=== PATIENT | female | born 1950 | race Caucasian/White ===

== ENCOUNTER 2019-09-11 11:10 | Inpatient (IN) | payer MEDICARE, OTHER ==
[2019-09-11] MEDS ORDERED: ALBUTEROL NEBULIZED 2.5 MG/3 ML INHALATION STA (11:34)
[2019-09-11] MEDS ORDERED: IPRATROPIUM 0.5 MG/2.5 ML NEBU INHALATION STA (11:34)
[2019-09-11] MEDS ORDERED: methylPREDNISolone SOD SUCCI 125 MG/2 ML VIAL IV STA (11:34)
[2019-09-11] MEDS ORDERED: ONDANSETRON 4 MG/2 ML VIAL IVP STA (11:36)
--- NOTE | 2019-09-11 12:38 | XR ---
EXAMINATION TYPE: XR chest 2V DATE OF EXAM: 09/11/2019 COMPARISON: 07/07/2015 HISTORY: 69-year-old female with shortness of breath, difficulty breathing TECHNIQUE: Frontal and lateral views FINDINGS: Heart normal size. Aorta and pulmonary vasculature within normal limits. Mild interstitial prominence and mild hyperinflation. Some strandy atelectasis in the lower lungs. IMPRESSION: Underlying COPD. Some strandy bibasilar atelectasis. No acute process otherwise seen.
--- NOTE | 2019-09-11 12:39 | ED ---
General Adult HPI - General Chief complaint: Shortness of Breath Stated complaint: SOB Time Seen by Provider: 09/11/19 11:15 Source: patient, RN notes reviewed, old records reviewed Mode of arrival: wheelchair Limitations: no limitations - History of Present Illness Initial comments: This is a 69-year-old female who presents emergency department with past medical history significant for COPD. Patient comes in today stating over the last 2 weeks her shortness of breath has gotten worse. Patient also complains of palpitations as well as nausea. Patient denies any recent fever chills patient complains of a slight cough. Patient denies headache patient denies numbness weakness. Patient denies any chest pain. Patient denies any abdominal pain. Patient denies any nausea vomiting diarrhea. Patient denies any focal weakness. Patient denies any headache patient denies any lightheadedness or dizziness. Patient states she takes her albuterol at home but has not been helping. Patient states he got worse today so she decided to come in. Patient denies any increased swelling to legs or calf tenderness. - Related Data Home Medications Medication Instructions Recorded Confirmed Aspirin EC [Ecotrin Low Dose] 81 mg PO HS 09/03/14 07/07/15 Atorvastatin [Lipitor] 10 mg PO HS 09/03/14 07/07/15 Ibuprofen [Advil] 600 mg PO BID PRN 09/03/14 07/07/15 LORazepam [Ativan] 0.5 mg PO BID PRN 09/03/14 07/07/15 Montelukast [Singulair] 10 mg PO HS 09/03/14 07/07/15 Tiotropium [place] [Spiriva] 18 mcg INHALATION RT-DAILY 09/03/14 07/07/15 amLODIPine [Norvasc] 10 mg PO DAILY 09/03/14 07/07/15 Beclomethasone Dipropionate [Qvar 2 puff INHALATION RT-BID 07/07/15 07/07/15 40 mcg/puff] FLUoxetine HCL [PROzac] 20 mg PO DAILY 07/07/15 07/07/15 Lisinopril [Zestril] 20 mg PO DAILY 07/07/15 07/07/15 Venlafaxine HCl [Effexor XR] 75 mg PO DAILY 07/07/15 07/07/15 Previous Rx's Medication Instructions Recorded Ipratropium-Albuterol Nebulize 3 ml INHALATION RT-Q4H PRN 30 Days 09/12/14 [Duoneb 0.5 mg-3 mg/3 ml Soln] ampul.neb Azithromycin [Zithromax] 500 mg PO DAILY #5 tab 07/10/15 Ondansetron [Zofran] 4 mg PO Q8HR PRN #10 tab 07/10/15 predniSONE 0 mg PO DIRECTED #30 tab 07/10/15 Allergies Allergy/AdvReac Type Severity Reaction Status Date / Time codeine Allergy Nausea & Verified 09/11/19 11:17 Vomiting Review of Systems ROS Statement: Those systems with pertinent positive or pertinent negative responses have been documented in the HPI. ROS Other: All systems not noted in ROS Statement are negative. Past Medical History Past Medical History: Asthma, COPD, Hyperlipidemia, Hypertension, Pneumonia Additional Past Medical History / Comment(s): hypercholestremia History of Any Multi-Drug Resistant Organisms: None Reported Past Surgical History: Tonsillectomy Additional Past Surgical History / Comment(s): parathyroid surgery, d/c x 2 Past Anesthesia/Blood Transfusion Reactions: No Reported Reaction Past Psychological History: Anxiety, Depression Smoking Status: Former smoker Past Alcohol Use History: None Reported Past Drug Use History: None Reported - Past Family History Mother Family Medical History: Cancer Additional Family Medical History / Comment(s): breast Sister(s) Family Medical History: Cancer Additional Family Medical History / Comment(s): breast General Exam - General Exam Comments Initial Comments: GENERAL: Patient is well-developed and well-nourished. Patient is nontoxic and well- hydrated and is in mild distress. ENT: Neck is soft and supple. No significant lymphadenopathy is noted. Oropharynx is clear. Moist mucous membranes. Neck has full range of motion without eliciting any pain. EYES: The sclera were anicteric and conjunctiva were pink and moist. Extraocular movements were intact and pupils were equal round and reactive to light. Eyelids were unremarkable. PULMONARY: Diminished breath sounds CARDIOVASCULAR: There is a regular rate and rhythm without any murmurs gallops or rubs. ABDOMEN: Soft and nontender with normal bowel sounds. No palpable organomegaly was noted. There is no palpable pulsatile mass. SKIN: Skin is clear with no lesions or rashes and otherwise unremarkable. NEUROLOGIC: Patient is alert and oriented x3. Cranial nerves II through XII are grossly intact. Motor and sensory are also intact. Normal speech, volume and content. Symmetrical smile. MUSCULOSKELETAL: Normal extremities with adequate strength and full range of motion. LYMPHATICS: No significant lymphadenopathy is noted PSYCHIATRIC: Normal psychiatric evaluation. Limitations: no limitations Course Vital Signs 09/11/19 09/11/19 09/11/19 11:11 11:44 12:07 Temperature 98.1 F Pulse Rate 91 92 96 Respiratory 18 Rate Blood Pressure 130/67 O2 Sat by Pulse 97 Oximetry 09/11/19 12:41 Temperature 98.2 F Pulse Rate 84 Respiratory 18 Rate Blood Pressure 111/58 O2 Sat by Pulse 90 L Oximetry Medical Decision Making - Medical Decision Making EKG shows normal sinus rhythm at 82 bpm CA interval is 142 URS is 82 QT interval 36 QTC is 450. EKG shows no ST segment elevation or depression Chest x-ray shows no acute abnormality. I spoke with Dr. Barney he agreed to admit the patient admitted the patient wrote admitting orders. - Lab Data Result diagrams: 09/11/19 12:15 09/11/19 12:15 Lab Results 09/11/19 09/11/19 09/11/19 Range/Units 12:15 12:15 12:15 WBC 11.5 H (3.8-10.6) k/uL RBC 4.06 (3.80-5.40) m/uL Hgb 12.1 (11.4-16.0) gm/dL Hct 36.8 (34.0-46.0) % MCV 90.7 (80.0-100.0) fL MCH 29.7 (25.0-35.0) pg MCHC 32.7 (31.0-37.0) g/dL RDW 12.7 (11.5-15.5) % Plt Count 302 (150-450) k/uL Neutrophils % 88 % Lymphocytes % 6 % Monocytes % 4 % Eosinophils % 1 % Basophils % 0 % Neutrophils # 10.1 H (1.3-7.7) k/uL Lymphocytes # 0.7 L (1.0-4.8) k/uL Monocytes # 0.5 (0-1.0) k/uL Eosinophils # 0.1 (0-0.7) k/uL Basophils # 0.0 (0-0.2) k/uL PT 9.3 (9.0-12.0) sec INR 0.9 (<1.2) APTT 24.4 (22.0-30.0) sec D-Dimer 0.48 (<0.60) mg/L FEU Sodium 136 L (137-145) mmol/L Potassium 4.3 (3.5-5.1) mmol/L Chloride 100 (98-107) mmol/L Carbon Dioxide 30 (22-30) mmol/L Anion Gap 6 mmol/L BUN 24 H (7-17) mg/dL Creatinine 1.29 H (0.52-1.04) mg/dL Est GFR (CKD-EPI)AfAm 49 (>60 ml/min/1.73 sqM) Est GFR (CKD-EPI)NonAf 42 (>60 ml/min/1.73 sqM) Glucose 113 H (74-99) mg/dL Plasma Lactic Acid Ricky (0.7-2.0) mmol/L Calcium 9.1 (8.4-10.2) mg/dL Magnesium 2.3 (1.6-2.3) mg/dL Total Bilirubin 0.4 (0.2-1.3) mg/dL AST 23 (14-36) U/L ALT 18 (4-34) U/L Alkaline Phosphatase 112 (38-126) U/L Troponin I (0.000-0.034) ng/mL NT-Pro-B Natriuret Pep pg/mL Total Protein 6.4 (6.3-8.2) g/dL Albumin 4.0 (3.5-5.0) g/dL 09/11/19 09/11/19 09/11/19 Range/Units 12:15 12:15 12:15 WBC (3.8-10.6) k/uL RBC (3.80-5.40) m/uL Hgb (11.4-16.0) gm/dL Hct (34.0-46.0) % MCV (80.0-100.0) fL MCH (25.0-35.0) pg MCHC (31.0-37.0) g/dL RDW (11.5-15.5) % Plt Count (150-450) k/uL Neutrophils % % Lymphocytes % % Monocytes % % Eosinophils % % Basophils % % Neutrophils # (1.3-7.7) k/uL Lymphocytes # (1.0-4.8) k/uL Monocytes # (0-1.0) k/uL Eosinophils # (0-0.7) k/uL Basophils # (0-0.2) k/uL PT (9.0-12.0) sec INR (<1.2) APTT (22.0-30.0) sec D-Dimer (<0.60) mg/L FEU Sodium (137-145) mmol/L Potassium (3.5-5.1) mmol/L Chloride (98-107) mmol/L Carbon Dioxide (22-30) mmol/L Anion Gap mmol/L BUN (7-17) mg/dL Creatinine (0.52-1.04) mg/dL Est GFR (CKD-EPI)AfAm (>60 ml/min/1.73 sqM) Est GFR (CKD-EPI)NonAf (>60 ml/min/1.73 sqM) Glucose (74-99) mg/dL Plasma Lactic Acid Ricky 1.3 (0.7-2.0) mmol/L Calcium (8.4-10.2) mg/dL Magnesium (1.6-2.3) mg/dL Total Bilirubin (0.2-1.3) mg/dL AST (14-36) U/L ALT (4-34) U/L Alkaline Phosphatase (38-126) U/L Troponin I <0.012 (0.000-0.034) ng/mL NT-Pro-B Natriuret Pep 125 pg/mL Total Protein (6.3-8.2) g/dL Albumin (3.5-5.0) g/dL Disposition Clinical Impression: COPD with acute exacerbation Disposition: ADMITTED IP TO THIS HOSP Referrals: Nicole Campbell DO [Primary Care Provider] - 1-2 days Time of Disposition: 13:39
[2019-09-11 12:41] LABS: Calcium 9.1 mg/dL (8.4-10.2); Magnesium 2.3 mg/dL (1.6-2.3); Potassium 4.3 mmol/L (3.5-5.1); Total Bilirubin 0.4 mg/dL (0.2-1.3); Total Protein 6.4 g/dL (6.3-8.2)
[2019-09-11 12:58] LABS: Basophils % (A) 0 %; Eosinophils # (A) 0.1 k/uL (0-0.7); Eosinophils % (A) 1 %; HCT 36.8 % (34.0-46.0); HGB 12.1 gm/dL (11.4-16.0); Lymphocytes # (A) 0.7 k/uL (1.0-4.8); Lymphocytes % (A) 6 %; MCH 29.7 pg (25.0-35.0); MCHC 32.7 g/dL (31.0-37.0); MCV 90.7 fL (80.0-100.0); Mean Platelet Volume 7.2; Monocytes # (A) 0.5 k/uL (0-1.0); Monocytes % (A) 4 %; Neutrophils # (A) 10.1 k/uL (1.3-7.7); Neutrophils % (A) 88 %; Platelet Count 302 k/uL (150-450); RBC 4.06 m/uL (3.80-5.40); RDW 12.7 % (11.5-15.5); WBC 11.5 k/uL (3.8-10.6)
[2019-09-11 13:12] LABS: D-Dimer 0.48 mg/L FEU (<0.60); INR 0.9 (<1.2); Partial Thromboplastin Time 24.4 sec (22.0-30.0); Prothrombin Time 9.3 sec (9.0-12.0)
[2019-09-11] MEDS ORDERED: IPRATROPIUM-ALBUTEROL 3 ML NEB INHALATION PRN ×2 (13:40→18:53)
[2019-09-11] MEDS ORDERED: IPRATROPIUM-ALBUTEROL 3 ML NEB INHALATION STA (13:54)
[2019-09-11 16:55] LABS: Glucose,Whole Blood 131 mg/dL (75-99)
[2019-09-11] MEDS: methylPREDNISolone SOD SUCCI 125 MG/2 ML VIAL IV SCH (17:05)
[2019-09-11] MEDS: INSULIN ASPART (NovoLOG) 100 UNIT/ML VIAL SQ SCH ×2 (17:07→21:30)
[2019-09-11] MEDS ORDERED: IPRATROPIUM-ALBUTEROL 3 ML NEB INHALATION SCH (18:00)
[2019-09-11] MEDS ORDERED: ACETAMINOPHEN TAB 500 MG TAB PO PRN (18:54)
[2019-09-11] MEDS ORDERED: AZITHROMYCIN 500 MG in SODIUM CHLORIDE 0.9% 250 ML IVPB SCH (19:00)
[2019-09-11] MEDS: BUDESONIDE 1 MG/2 ML NEBU INHALATION SCH (20:11)
[2019-09-11] MEDS: IPRATROPIUM-ALBUTEROL 3 ML NEB INHALATION SCH (20:11)
[2019-09-11] MEDS: FORMOTEROL FUMARATE 20 MCG/2 ML NEBU INHALATION SCH (20:11)
[2019-09-11 20:20] LABS: Glucose,Whole Blood 152 mg/dL (75-99)
--- NOTE | 2019-09-11 20:50 | HP ---
HISTORY AND PHYSICAL I am covering for Dr. Margarito Campbell. DATE OF SERVICE: 09/11/2019 CHIEF COMPLAINT: Shortness of breath. HISTORY OF PRESENT ILLNESS: This 69-year-old woman with a past medical history of asthma, COPD, hypertension, hyperlipidemia, history of pneumonia, history of tonsillectomy, being followed by Dr. Nicole Campbell and Dr. Jaclyn Hammonds in the outpatient setting not feeling well over the past couple weeks. The patient had increasing shortness of breath which has gotten worse. The patient also has some nausea. The patient also has slight cough. Patient came to [facility] and was admitted to the hospital for further evaluation and treatment. A chest x-ray done at the time of admission, which was reviewed personally by me showed some increased bronchovascular markings, but no definite evidence of pneumonia at this time. There is no history of fever, rigors or chills. No history of headache, loss of consciousness, seizures at this time. PAST MEDICAL HISTORY: Asthma, COPD, hypertension, hyperlipidemia, history of pneumonia, history of anxiety, depression. MEDICATIONS: Prior to admission include: 1. Incruse Ellipta 1 puff daily. 2. Iron sulfate 320 mg daily. 3. Lamictal 25 mg p.o. 4. Lasix 20 mg p.o. daily. 5. Breo Ellipta 1 puff daily. 6. Singulair 10 mg q.h.s. 7. Zestril 20 mg daily. 8. DuoNeb q.i.d. p.r.n. 9. Prozac 20 mg p.o. daily. 10.Norvasc 10 mg daily. 11.Lipitor 10 mg q.h.s. 12.Ecotrin 81 mg q.h.s. ALLERGIES: CODEINE. FAMILY HISTORY: History of breast cancer in the family. SOCIAL HISTORY: Previous history of smoking. No history of current smoking or alcohol intake. REVIEW OF SYSTEMS: ENT: No diminished vision. No diminished hearing. Cardiovascular as mentioned earlier. Respiratory: As mentioned earlier. GI no nausea or vomiting. no dysuria. Nervous system: No numbness or weakness. Allergy/Immunology: No asthma or hayfever. MUSCULOSKELETAL as mentioned earlier. Hematology/Oncology: No history of anemia. ENDOCRINE: No history of diabetes or hypothyroidism. Constitutional: As mentioned earlier. DERMATOLOGY: Negative. RHEUMATOLOGY negative. PSYCHIATRY as mentioned earlier. PHYSICAL EXAM: Patient is alert and oriented x3. Pulse is 83. Blood pressure 124/50, respiration 18, temp 98.2, pulse ox 94% on 4 L. HEENT is conjunctivae normal. Neck: No JVD. CARDIOVASCULAR: S1, S2 muffled. No S3, no S4. RESPIRATORY: Breath sounds diminished in the bases. A few scattered rhonchi and crackles. Expiratory wheezing also present. ABDOMEN: Soft, nontender. No mass palpable. LEGS: No edema. No swelling. Nervous system: Higher functions as mentioned earlier. Moves all 4 limbs. No focal motor or sensory deficits. Lymphatics: No lymph nodes palpable in the neck, axillae or groin. SKIN: No ulcer. No rashes. No bleeding. JOINTS: No active deforming arthropathy. LABS: WBC 11.2, hemoglobin 12.1, sodium 136, creatinine 1.29 and glucose 113. ASSESSMENT: 1. Chronic obstructive pulmonary disease exacerbation with acute purulent tracheobronchitis with failure of outpatient treatment, asthma, chronic obstructive pulmonary disease acute exacerbation. 2. Increased creatinine with mild acute renal failure, acute tubular necrosis. 3. Hyponatremia. 4. Increased random blood sugar. 5. Increased WBC. 6. Asthma, chronic obstructive pulmonary disease history. 7. Hyperlipidemia. 8. Hypertension. 9. History of pneumonia. 10.History of hypercholesterolemia. 11.History of anxiety, depression. 12.Remote history of nicotine dependence. 13.Obesity with body mass index of 36.1. RECOMMENDATIONS AND DISCUSSION: This 69-year-old woman who presented with multiple complex medical issues, we will monitor the patient closely. We will optimize the bronchodilator treatment, IV steroids. DVT prophylaxis. Monitor blood sugars closely. Resume the home medications. Consult Dr. Jatin Hammonds. Otherwise prognosis guarded because of multiple complex medical issues. Otherwise, broad-spectrum IV antibiotics also will be given. A copy of this dictation being forwarded to Dr. Campbell who is the primary physician. We will check influenza also. MMODL / IJN: [id number] /
[2019-09-11] MEDS: ATORVASTATIN 10 MG TAB PO SCH (21:30)
[2019-09-11] MEDS: MONTELUKAST 10 MG TAB PO SCH (21:30)
[2019-09-11] MEDS: HEPARIN SODIUM,PORCINE 5,000 UNIT/ML 1 ML VIAL SQ SCH (21:30)
[2019-09-11] MEDS: ASPIRIN 81 MG PO SCH (21:30)
[2019-09-12] MEDS: methylPREDNISolone SOD SUCCI 125 MG/2 ML VIAL IV SCH ×4 (00:20→17:16)
[2019-09-12 07:03] LABS: Glucose,Whole Blood 143 mg/dL (75-99)
[2019-09-12] MEDS: IPRATROPIUM-ALBUTEROL 3 ML NEB INHALATION SCH ×4 (07:03→19:00)
[2019-09-12] MEDS: BUDESONIDE 1 MG/2 ML NEBU INHALATION SCH ×2 (07:03→19:00)
[2019-09-12] MEDS: FORMOTEROL FUMARATE 20 MCG/2 ML NEBU INHALATION SCH ×2 (07:03→19:00)
[2019-09-12 07:46] LABS: Calcium 9.2 mg/dL (8.4-10.2); Potassium 4.8 mmol/L (3.5-5.1)
[2019-09-12 07:48] LABS: Basophils % (A) 0 %; Eosinophils % (A) 0 %; HCT 37.7 % (34.0-46.0); HGB 12.2 gm/dL (11.4-16.0); Lymphocytes # (A) 0.4 k/uL (1.0-4.8); Lymphocytes % (A) 3 %; MCH 29.8 pg (25.0-35.0); MCHC 32.3 g/dL (31.0-37.0); MCV 92.2 fL (80.0-100.0); Mean Platelet Volume 7.2; Monocytes # (A) 0.2 k/uL (0-1.0); Monocytes % (A) 1 %; Neutrophils # (A) 13.1 k/uL (1.3-7.7); Neutrophils % (A) 95 %; Platelet Count 294 k/uL (150-450); RBC 4.09 m/uL (3.80-5.40); RDW 12.7 % (11.5-15.5); WBC 13.7 k/uL (3.8-10.6)
[2019-09-12] MEDS: amLODIPine 10 MG TAB PO SCH (07:57)
[2019-09-12] MEDS: PANTOPRAZOLE 40 MG TABLET PO SCH (07:57)
[2019-09-12] MEDS: HEPARIN SODIUM,PORCINE 5,000 UNIT/ML 1 ML VIAL SQ SCH ×2 (07:57→20:40)
[2019-09-12] MEDS: FLUoxetine HCL 20 MG CAP PO SCH (07:57)
[2019-09-12] MEDS: LISINOPRIL 20 MG TAB PO SCH (07:57)
[2019-09-12] MEDS: FUROSEMIDE 20 MG TAB PO SCH (07:57)
[2019-09-12] MEDS: FERROUS SULFATE 325 MG TAB PO SCH (07:57)
[2019-09-12] MEDS: lamoTRIgine 25 MG TAB PO SCH (07:57)
[2019-09-12] MEDS: INSULIN ASPART (NovoLOG) 100 UNIT/ML VIAL SQ SCH ×4 (07:58→20:40)
[2019-09-12 11:11] LABS: Glucose,Whole Blood 121 mg/dL (75-99)
[2019-09-12] MEDS: MULTIVITAMINS, THERA 1 EACH TAB PO SCH (13:34)
[2019-09-12 16:56] LABS: Glucose,Whole Blood 133 mg/dL (75-99)
[2019-09-12 19:28] LABS: Glucose,Whole Blood 194 mg/dL (75-99)
[2019-09-12] MEDS: NYSTATIN 100,000 UNIT/ML SUSP 500,000 UNIT/5 ML CUP PO SCH ×2 (19:40→22:50)
[2019-09-12] MEDS: ALPRAZolam 0.25 MG TAB PO PRN (20:40)
[2019-09-12] MEDS: ATORVASTATIN 10 MG TAB PO SCH (20:40)
[2019-09-12] MEDS: AZITHROMYCIN 500 MG TAB PO SCH (20:40)
[2019-09-12] MEDS: MONTELUKAST 10 MG TAB PO SCH (20:40)
[2019-09-12] MEDS: ASPIRIN 81 MG PO SCH (20:40)
--- NOTE | 2019-09-12 21:44 | PN ---
PROGRESS NOTE DATE OF SERVICE: 09/12/2019 I am covering for Dr. Campbell. This 69-year-old woman with a past medical history of multiple medical problems has COPD acute exacerbation. Patient also has mild renal failure. Creatinine has elevated to 1.22. No chest pain. No palpitations. No fever. EXAM: Alert and oriented x3. Pulse is 91, blood pressure 120/68, respirations 16, temperature 98.4, pulse ox 97% on 4 L. HEENT: Conjunctivae normal. Oral mucosa moist. NECK: No jugular venous distention. No lymph node enlargement. CARDIOVASCULAR: S1, S2. RESPIRATORY: Diminished breath sounds at the bases. A few scattered rhonchi and crackles. ABDOMEN: Soft, nontender. LEGS: No edema, no swelling. NERVOUS SYSTEM: No focal deficits. LABS: WBC 13.7, sodium 136, creatinine is 1.22. Influenza negative. ASSESSMENT: 1. Chronic obstructive pulmonary disease acute exacerbation with acute purulent tracheobronchitis with failure of outpatient treatment, asthma, chronic obstructive pulmonary disease acute exacerbation. 2. Increased creatinine with mild acute renal failure, acute tubular necrosis. 3. Hyponatremia. 4. Increased random blood sugar. 5. Increased WBC. 6. Asthma, chronic obstructive pulmonary disease. 7. Hyperlipidemia. 8. Hypertension. 9. History of pneumonia. 10.History of hypercholesteremia. 11.History of anxiety, depression. 12.Remote history of nicotine dependence. 13.Obesity with body mass index of 36.1. RECOMMENDATIONS AND DISCUSSION: Recommend to continue current management and symptomatic treatment. Otherwise, continue the bronchodilators and steroids. Continue with pulmonary. Guarded prognosis. Further recommendations to follow. MMODL / IJN: [id number] /
[2019-09-13] MEDS: methylPREDNISolone SOD SUCCI 125 MG/2 ML VIAL IV SCH ×5 (00:06→23:00)
[2019-09-13 06:57] LABS: Glucose,Whole Blood 128 mg/dL (75-99)
--- NOTE | 2019-09-13 07:37 | CONS ---
CONSULTATION Tawanna Vogt is a 69-year-old female with a history of severe COPD who comes in with increasing shortness of breath of about 1 weeks duration. She had some swelling of her lower extremities, but not more than usual. She has an occasional cough, does not bring up much phlegm and was seen in the ER at [facility] and admitted for further evaluation and management. She also had been having some palpitations, nausea. No clear fever or chills. PAST MEDICAL HISTORY: Positive for severe COPD, asthma. No clear history of obstructive sleep apnea, history of parathyroid surgery, tonsillectomy, anxiety, depression. SOCIAL HISTORY: Patient is a former smoker. Does not drink alcohol excessively. FAMILY HISTORY: Positive for breast cancer in her mother and her sister. MEDICATIONS: Medications prior to admission were Incruse, Feosol, Lamictal, Lasix, Breo, Singulair, Zestril, DuoNeb, Prozac, Norvasc, Lipitor, and Ecotrin low dose. REVIEW OF SYSTEMS: Noncontributory. PHYSICAL EXAMINATION: On physical examination, respiratory rate is 16, pulse rate 91, temperature 98.4, blood pressure 128/60, O2 saturation on 4 L by nasal cannula is 97%. HEENT reveals pupils equal, mild prominence of the jugular vein. Chest reveals decreased breath sounds. Prolonged exhalation. No clear wheeze except on forced exhalation. Cardiovascular system reveals an S1, S2. Abdomen is soft. There is 1+ pedal edema. Sodium is 136, potassium 4.8, chloride 99, bicarb 28, BUN 28, creatinine 1.22. White count of 13.7, hemoglobin of 12.2. Chest x-ray showed prominence of the vasculature. IMPRESSION AT THIS TIME: 1. Chronic obstructive pulmonary disease with acute exacerbation. 2. Asthma. 3. Cor pulmonale is likely. 4. Component of congestive heart failure, mainly right-sided failure. At this point in time, keep her on IV and aerosolized steroids, leukotriene receptor antagonists and bronchodilators. Keep her on GI and DVT prophylaxis. Depending on how she does, we shall make further changes to her care. She was counseled regarding her condition and this approach and has a fair understanding of our recommendations. I would like to thank you for allowing me to participate in her care. MMODL / IJN: [id number] /
[2019-09-13 08:25] LABS: Basophils % (A) 0 %; Eosinophils # (A) 0.1 k/uL (0-0.7); Eosinophils % (A) 0 %; HCT 36.4 % (34.0-46.0); HGB 11.5 gm/dL (11.4-16.0); Lymphocytes # (A) 0.6 k/uL (1.0-4.8); Lymphocytes % (A) 2 %; MCH 29.5 pg (25.0-35.0); MCHC 31.5 g/dL (31.0-37.0); MCV 93.5 fL (80.0-100.0); Mean Platelet Volume 7.4; Monocytes # (A) 0.3 k/uL (0-1.0); Monocytes % (A) 2 %; Neutrophils # (A) 21.7 k/uL (1.3-7.7); Neutrophils % (A) 96 %; Platelet Count 338 k/uL (150-450); RDW 12.8 % (11.5-15.5); WBC 22.6 k/uL (3.8-10.6)
[2019-09-13 08:48] LABS: Calcium 9.2 mg/dL (8.4-10.2); Potassium 4.9 mmol/L (3.5-5.1)
[2019-09-13] MEDS: IPRATROPIUM-ALBUTEROL 3 ML NEB INHALATION SCH ×5 (08:51→21:14)
[2019-09-13] MEDS: BUDESONIDE 1 MG/2 ML NEBU INHALATION SCH ×2 (08:51→21:14)
[2019-09-13] MEDS: FORMOTEROL FUMARATE 20 MCG/2 ML NEBU INHALATION SCH ×2 (08:51→21:14)
[2019-09-13] MEDS: INSULIN ASPART (NovoLOG) 100 UNIT/ML VIAL SQ SCH ×4 (09:25→20:29)
[2019-09-13] MEDS: FERROUS SULFATE 325 MG TAB PO SCH (09:35)
[2019-09-13] MEDS: MULTIVITAMINS, THERA 1 EACH TAB PO SCH (09:36)
[2019-09-13] MEDS: LISINOPRIL 20 MG TAB PO SCH (09:36)
[2019-09-13] MEDS: FLUoxetine HCL 20 MG CAP PO SCH (09:36)
[2019-09-13] MEDS: amLODIPine 10 MG TAB PO SCH (09:36)
[2019-09-13] MEDS: lamoTRIgine 25 MG TAB PO SCH (09:36)
[2019-09-13] MEDS: NYSTATIN 100,000 UNIT/ML SUSP 500,000 UNIT/5 ML CUP PO SCH ×4 (09:36→20:30)
[2019-09-13] MEDS: FUROSEMIDE 20 MG TAB PO SCH (09:36)
[2019-09-13] MEDS: PANTOPRAZOLE 40 MG TABLET PO SCH (09:36)
[2019-09-13] MEDS: HEPARIN SODIUM,PORCINE 5,000 UNIT/ML 1 ML VIAL SQ SCH ×2 (09:36→20:30)
--- NOTE | 2019-09-13 10:52 | CDI ---
Documentation Clarification Form Date: 09/13/2019 10:42:47 AM From: Edie Watts RN, CCDS Admit Date: 09/11/2019 01:40:00 PM Patient Name: Tawanna Vogt Visit Number: [id number] ATTENTION: The Clinical Documentation Specialists (CDI) and [facility] Coding Staff appreciate your assistance in clarifying documentation. Please respond to the clarification below the line at the bottom and electronically sign. The CDI & [facility] Coding staff will review the response and follow-up if needed. Please note: Queries are made part of the Legal Health Record. If you have any questions, please contact the author of this message via ITS. Dr. Miguel Hammonds Asthma is documented in the H&P, Pulmonary consult, and Progress notes and requires further specificity. History/risk factors: Asthma, COPD, Pneumonia, anxiety Clinical Indicators: 09/10 H&P: "Chronic obstructive pulmonary disease exacerbation with acute purulent tracheobronchitis with failure of outpatient treatment, asthma, chronic obstructive pulmonary disease acute exacerbation." 09/11 Pulmonary Consult: "Asthma." CXR: "Underlying COPD. Some strandy bibasilar atelectasis." 09/11/19 1111 Vital Signs: Temp 98.1, hr 91, RR 18, B/P 130/67, spo2 97% RA Treatment: Medication: Duoneb INH QID and PRN SOB, Pulmoicort INH BID, Performamist 20mcg INH BID, Xanax .25 PO PRN, Solumedrol 60 mg IVP Q 6 hrs anxiety, Singulair 10 mg PO HS Consults: Pulmonary In your professional opinion, can you please further specify the following, if known? With Acute Exacerbation Status asthmaticus Acute lower respiratory infection COPD (specify with or without exacerbation) Chronic obstructive bronchitis Other, please specify ___ Unable to determine Severity Mild intermittent Mild persistent Moderate persistent Severe persistent Other, please specify ____ Unable to determine Form or Type Cough variant Childhood Exercise induced bronchospasm Extrinsic allergic Idiosyncratic Intrinsic nonallergic Late-onset Mixed Other, please specify____ Unable to determine (Last Revision: October 2017) MTDD
--- NOTE | 2019-09-13 11:03 | CDI ---
Documentation Clarification Form Date: 09/13/19 1100 From: Edie Watts RN, CCDS Admit Date: 09/11/2019 01:40:00 PM Patient Name: Tawanna Vogt Visit Number: [id number] ATTENTION: The Clinical Documentation Specialists (CDI) and [facility] Coding Staff appreciate your assistance in clarifying documentation. Please respond to the clarification below the line at the bottom and electronically sign. The CDI & [facility] Coding staff will review the response and follow-up if needed. Please note: Queries are made part of the Legal Health Record. If you have any questions, please contact the author of this message via ITS. Dr. Marcell Barney The patient presented with increasing SOB and COPD exacerbation and does not normally wear oxygen at home. Please provide clinical significance. History/Risk Factors: Asthma, COPD, Pneumonia, anxiety Tobacco use: hx of smoking Home oxygen: none Clinical Indicators: 09/10 H&P: "Chronic obstructive pulmonary disease exacerbation with acute purulent tracheobronchitis with failure of outpatient treatment, asthma, chronic obstructive pulmonary disease acute exacerbation." 09/11 Pulmonary Consult: "Copd exacerbation. Asthma. Cor pulmonale. Right sided heart failure" CXR: "Underlying COPD. Some strandy bibasilar atelectasis." 09/11/19 1111 Vital Signs: Temp 98.1, hr 91, RR 18, B/P 130/67, spo2 97% RA 09/10 H&P: Lung/Breathing assessment: "Breath sounds diminished in the bases. A few scattered rhonchi and crackles. Expiratory wheezing also present." Treatment: Medication: Duoneb INH QID and PRN SOB, Pulmicort INH BID, Performamist 20mcg INH BID, Xanax .25 PO PRN, Solumedrol 60 mg IVP Q 6 hrs anxiety, Singulair 10 mg PO HS Consults: Pulmonary Continuous Pulse ox per unit protocol O2: 3-4 L nasal cannula In your professional opinion, can you please clarify if these findings signify one of the following conditions? Acute Hypoxic Respiratory Failure Acute Hypercapnic Respiratory Failure Other Diagnosis, please specify Unable to determine (Last Query Form Revision: March 2019) Unable to determine MTDD
[2019-09-13 11:32] LABS: Glucose,Whole Blood 129 mg/dL (75-99)
--- NOTE | 2019-09-13 15:19 | P.PN ---
Subjective Progress Note Date: 09/13/19 Principal diagnosis: This is a 69-year-old female who was recently admitted for COPD acute exacerbation and is being closely monitored. Patient also continues to have some mild renal failure and current creatinine is 1.44. Patient stated that her breathing has somewhat improved although she continues to be dyspneic upon exertion. Patient states that she normally wears 4 L of oxygen via nasal cannula 24/7 at home and is currently maintained on 4 L of oxygen via nasal cannula. Patient continues on IV steroids along with bronchodilators. No reports of chest pain, worsening shortness of breath, or palpitations. Patient is afebrile. No reports of nausea or vomiting and patient is tolerating diet. Objective - Vital Signs Vital signs: Vital Signs Temp 98.7 F 09/13/19 12:44 Pulse 77 09/13/19 15:05 Resp 16 09/13/19 15:05 BP 121/60 09/13/19 12:44 Pulse Ox 99 09/13/19 12:44 Intake & Output 09/12/19 09/13/19 09/13/19 18:59 06:59 18:59 Intake Total 100 240 Output Total 0 Balance 100 0 240 Weight 83.915 kg Intake: Intake, IV Titration 100 Amount cefTRIAXone 1 gm In 100 Sodium Chloride 0.9% 50 ml @ 100 mls/hr IVPB Q24HR [facility] Rx#:[id number] Oral 240 Output: Emesis 0 Other: Voiding Method Toilet Toilet Toilet # Voids 2 3 # Bowel Movements 1 - Exam Gen: This is a 69-year-old female sitting up in the chair, awake, alert and oriented 3, well-developed, well-nourished. HEENT: Head is atraumatic, normocephalic. Pupils equal, round. Sclerae is anicteric. NECK: Supple. No JVD. No lymphadenopathy. No thyromegaly. LUNGS: Diminished breath sounds at the bases with a few scattered rhonchi and some expiratory wheezing noted. No intercostal retractions. HEART: S1, S2 are muffled ABDOMEN: Soft. Bowel sounds are present. No masses. No tenderness. EXTREMITIES: No pedal edema. No calf tenderness. NEUROLOGICAL: Patient is awake, alert and oriented x3. Cranial nerves 2 through 12 are grossly intact. - Labs CBC & Chem 7: 09/13/19 06:50 09/13/19 06:50 Labs: Abnormal Lab Results - Last 24 Hours (Table) 09/12/19 09/12/19 09/13/19 Range/Units 16:54 19:26 06:50 WBC 22.6 H (3.8-10.6) k/uL Neutrophils # 21.7 H (1.3-7.7) k/uL Lymphocytes # 0.6 L (1.0-4.8) k/uL BUN (7-17) mg/dL Creatinine (0.52-1.04) mg/dL Glucose (74-99) mg/dL POC Glucose (mg/dL) 133 H 194 H (75-99) mg/dL 09/13/19 09/13/19 09/13/19 Range/Units 06:50 06:56 11:31 WBC (3.8-10.6) k/uL Neutrophils # (1.3-7.7) k/uL Lymphocytes # (1.0-4.8) k/uL BUN 41 H (7-17) mg/dL Creatinine 1.44 H (0.52-1.04) mg/dL Glucose 120 H (74-99) mg/dL POC Glucose (mg/dL) 128 H 129 H (75-99) mg/dL Assessment and Plan Assessment: Chronic obstructive pulmonary disease, acute exacerbation with acute purulent tracheobronchitis with failure of outpatient treatment, asthma, chronic obstructive pulmonary disease acute exacerbation Increased creatinine with mild acute renal failure, acute tubular necrosis Hyponatremia Increased random blood sugars Increased WBC Asthma, chronic obstructive pulmonary disease, O2 dependent of 4 L at home Hyperlipidemia Hypertension History of pneumonia next line history of hypercholesterolemia History of anxiety, depression remote history of nicotine dependence Obesity with body mass index of 36.1 Recommendations and discussion: Recommend to continue current medications, management, and symptomatic treatment. Continue with bronchodilators along with IV steroids. Pulmonary is following. Discussed with the patient about increasing activity as tolerated. Due to multiple complex medical issues prognosis is guarded. Further r ecommendations to follow. Will repeat a.m. labs. Possible discharge in 24-48 hours.
[2019-09-13 17:00] LABS: Glucose,Whole Blood 111 mg/dL (75-99)
[2019-09-13 20:00] LABS: Glucose,Whole Blood 194 mg/dL (75-99)
[2019-09-13] MEDS: ALPRAZolam 0.25 MG TAB PO PRN (20:29)
[2019-09-13] MEDS: ATORVASTATIN 10 MG TAB PO SCH (20:30)
[2019-09-13] MEDS: ASPIRIN 81 MG PO SCH (20:30)
[2019-09-13] MEDS: AZITHROMYCIN 500 MG TAB PO SCH (20:30)
[2019-09-13] MEDS: MONTELUKAST 10 MG TAB PO SCH (20:30)
--- NOTE | 2019-09-13 21:52 | PN ---
PROGRESS NOTE DATE OF SERVICE: 09/13/2019 This patient has been hemodynamically stable. She is less short of breath, does not bring up any phlegm. On physical examination, her vitals are stable. She is afebrile. Her chest reveals prolonged exhalation; no clear wheeze. Cardiovascular system reveals an S1, S2. Abdomen is soft. There is no pedal edema. IMPRESSION AT THIS TIME: 1. Severe chronic obstructive pulmonary disease with acute exacerbation. 2. Asthmatic component to her symptomatology. 3. Cor pulmonale. Continue steroids, bronchodilators. Agree with possible discharge planning tomorrow if she continues to improve with close outpatient followup. MMODL / IJN: [id number] /
[2019-09-14] MEDS: methylPREDNISolone SOD SUCCI 125 MG/2 ML VIAL IV SCH ×2 (05:24→11:27)
[2019-09-14 05:27] VITALS: TEMP 97.1
[2019-09-14] MEDS: BUDESONIDE 1 MG/2 ML NEBU INHALATION SCH (07:00)
[2019-09-14] MEDS: FORMOTEROL FUMARATE 20 MCG/2 ML NEBU INHALATION SCH (07:00)
[2019-09-14] MEDS: IPRATROPIUM-ALBUTEROL 3 ML NEB INHALATION SCH ×2 (07:00→10:39)
[2019-09-14 07:04] LABS: Glucose,Whole Blood 123 mg/dL (75-99)
[2019-09-14] MEDS: INSULIN ASPART (NovoLOG) 100 UNIT/ML VIAL SQ SCH ×2 (07:11→11:29)
[2019-09-14 07:49] LABS: Basophils % (A) 0 %; Eosinophils # (A) 0.1 k/uL (0-0.7); Eosinophils % (A) 0 %; Lymphocytes # (A) 0.6 k/uL (1.0-4.8); Lymphocytes % (A) 3 %; MCH 29.3 pg (25.0-35.0); MCHC 31.7 g/dL (31.0-37.0); MCV 92.4 fL (80.0-100.0); Mean Platelet Volume 6.8; Monocytes # (A) 0.4 k/uL (0-1.0); Monocytes % (A) 2 %; Neutrophils # (A) 21.5 k/uL (1.3-7.7); Neutrophils % (A) 95 %; Platelet Count 371 k/uL (150-450); RBC 4.11 m/uL (3.80-5.40); RDW 12.8 % (11.5-15.5); WBC 22.6 k/uL (3.8-10.6)
[2019-09-14 07:57] LABS: Calcium 9.1 mg/dL (8.4-10.2); Potassium 4.7 mmol/L (3.5-5.1)
[2019-09-14] MEDS: ALPRAZolam 0.25 MG TAB PO PRN (08:24)
[2019-09-14] MEDS: amLODIPine 10 MG TAB PO SCH (08:25)
[2019-09-14] MEDS: FUROSEMIDE 20 MG TAB PO SCH (08:25)
[2019-09-14] MEDS: PANTOPRAZOLE 40 MG TABLET PO SCH (08:25)
[2019-09-14] MEDS: FLUoxetine HCL 20 MG CAP PO SCH (08:25)
[2019-09-14] MEDS: FERROUS SULFATE 325 MG TAB PO SCH (08:25)
[2019-09-14] MEDS: LISINOPRIL 20 MG TAB PO SCH (08:25)
[2019-09-14] MEDS: HEPARIN SODIUM,PORCINE 5,000 UNIT/ML 1 ML VIAL SQ SCH (08:26)
[2019-09-14] MEDS: lamoTRIgine 25 MG TAB PO SCH (08:26)
[2019-09-14] MEDS: MULTIVITAMINS, THERA 1 EACH TAB PO SCH (08:26)
[2019-09-14] MEDS: NYSTATIN 100,000 UNIT/ML SUSP 500,000 UNIT/5 ML CUP PO SCH ×2 (08:26→13:16)
--- NOTE | 2019-09-14 10:25 | CDI ---
Documentation Clarification Form 2nd request Date: 09/13/2019 10:42:47 AM From: Edie Watts RN, CCDS Admit Date: 09/11/2019 01:40:00 PM Patient Name: Tawanna Vogt Visit Number: [id number] ATTENTION: The Clinical Documentation Specialists (CDI) and [facility] Coding Staff appreciate your assistance in clarifying documentation. Please respond to the clarification below the line at the bottom and electronically sign. The CDI & [facility] Coding staff will review the response and follow-up if needed. Please note: Queries are made part of the Legal Health Record. If you have any questions, please contact the author of this message via ITS. Dr. Miguel Hammonds Asthma is documented in the H&P, Pulmonary consult, and Progress notes and requires further specificity. History/risk factors: Asthma, COPD, Pneumonia, anxiety Clinical Indicators: 09/10 H&P: "Chronic obstructive pulmonary disease exacerbation with acute purulent tracheobronchitis with failure of outpatient treatment, asthma, chronic obstructive pulmonary disease acute exacerbation." 09/11 Pulmonary Consult: "Asthma." CXR: "Underlying COPD. Some strandy bibasilar atelectasis." 09/11/19 1111 Vital Signs: Temp 98.1, hr 91, RR 18, B/P 130/67, spo2 97% RA Treatment: Medication: Duoneb INH QID and PRN SOB, Pulmoicort INH BID, Performamist 20mcg INH BID, Xanax .25 PO PRN, Solumedrol 60 mg IVP Q 6 hrs anxiety, Singulair 10 mg PO HS Consults: Pulmonary In your professional opinion, can you please further specify the following, if known? With Acute Exacerbation Status asthmaticus Acute lower respiratory infection COPD (specify with or without exacerbation) Chronic obstructive bronchitis Other, please specify ___ Unable to determine Severity Mild intermittent Mild persistent Moderate persistent Severe persistent Other, please specify ____ Unable to determine Form or Type Cough variant Childhood Exercise induced bronchospasm Extrinsic allergic Idiosyncratic Intrinsic nonallergic Late-onset Mixed Other, please specify____ Unable to determine (Last Revision: October 2017) MTDD
[2019-09-14 11:27] LABS: Glucose,Whole Blood 133 mg/dL (75-99)
[2019-09-14 11:40] VITALS: BP 111/61; PULSE 80; RESP 16
--- NOTE | 2019-09-15 06:44 | CDI ---
Documentation Clarification Form 3rd Request Date: 09/13/2019 10:42:47 AM From: Edie Watts RN, CCDS Admit Date: 09/11/2019 01:40:00 PM Patient Name: Tawanna Vogt Visit Number: [id number] ATTENTION: The Clinical Documentation Specialists (CDI) and [facility] Coding Staff appreciate your assistance in clarifying documentation. Please respond to the clarification below the line at the bottom and electronically sign. The CDI & [facility] Coding staff will review the response and follow-up if needed. Please note: Queries are made part of the Legal Health Record. If you have any questions, please contact the author of this message via ITS. Dr. Miguel Hammonds Asthma is documented in the H&P, Pulmonary consult, and Progress notes and requires further specificity. History/risk factors: Asthma, COPD, Pneumonia, anxiety Clinical Indicators: 09/10 H&P: "Chronic obstructive pulmonary disease exacerbation with acute purulent tracheobronchitis with failure of outpatient treatment, asthma, chronic obstructive pulmonary disease acute exacerbation." 09/11 Pulmonary Consult: "Asthma." CXR: "Underlying COPD. Some strandy bibasilar atelectasis." 09/11/19 1111 Vital Signs: Temp 98.1, hr 91, RR 18, B/P 130/67, spo2 97% RA Treatment: Medication: Duoneb INH QID and PRN SOB, Pulmoicort INH BID, Performamist 20mcg INH BID, Xanax .25 PO PRN, Solumedrol 60 mg IVP Q 6 hrs anxiety, Singulair 10 mg PO HS Consults: Pulmonary In your professional opinion, can you please further specify the following, if known? With Acute Exacerbation Status asthmaticus Acute lower respiratory infection COPD (specify with or without exacerbation) Chronic obstructive bronchitis Other, please specify ___ Unable to determine Severity Mild intermittent Mild persistent Moderate persistent Severe persistent Other, please specify ____ Unable to determine Form or Type Cough variant Childhood Exercise induced bronchospasm Extrinsic allergic Idiosyncratic Intrinsic nonallergic Late-onset Mixed Other, please specify____ Unable to determine (Last Revision: October 2017) MTDD
--- NOTE | 2019-09-15 08:24 | P.DS ---
Providers Date of admission: 09/11/19 13:40 Expected date of discharge: 09/15/19 Attending physician: Marcell Barney Consults: 09/11/19 18:54 Consult Physician Routine Consulting Provider: Miguel Hammonds Consult Reason/Comments: copd Do you want consulting provider notified?: Yes Primary care physician: Nicole Campbell [facility] Course: Final diagnosis Chronic obstructive pulmonary disease, acute exacerbation with acute purulent tracheobronchitis with failure of outpatient treatment, asthma, chronic obstructive pulmonary disease acute exacerbation Increased creatinine with mild acute renal failure, acute tubular necrosis Hyponatremia Increased random blood sugars Increased WBC Asthma, chronic obstructive pulmonary disease, O2 dependent of 4 L at home Hyperlipidemia Hypertension History of pneumonia history of hypercholesterolemia History of anxiety, depression remote history of nicotine dependence Obesity with body mass index of 36.1 Discharge disposition Patient is being discharged in a stable condition with guarded prognosis to home. Patient will follow-up with Dr. Nicole Campbell upon discharge. Patient will continue with a short course of oral antibiotics in the form of Ceftin and Zithromax along with nystatin swish and swallow. Patient will also continue on a prednisone taper in the outpatient setting. Total time taken is 35 minutes. History of present illness This is a 69-year-old female who was recently admitted with COPD acute exacerbation and was being closely monitored. Pulmonary Dr. Hammonds was following. Patient was treated with antibiotics in the form of IV ceftriaxone along with oral Zithromax and will be transitioned oral Ceftin 500 mg twice daily for the next 3 days along with oral Zithromax for 4 days and then may discontinue. Patient will also continue with nystatin swish and swallow and a prednisone taper in the outpatient setting. During hospitalization patient was maintained on bronchodilators along with IV steroids and IV antibiotics as mentioned previously and continue to slowly improve. Patient currently uses 4 L of oxygen via nasal cannula / and was tapered down to 2-3 L via nasal cannula. Currently no reports of chest pain, worsening shortness of breath, or palpitations. Patient is afebrile. No reports of nausea or vomiting and patient is tolerating diet. Guarded prognosis. On exam vital signs are stable. Temp is 97.1 F, pulse is 80, respirations are 16, blood pressure is 111/61, oxygen saturation is 100% on 4 L via nasal cannula. Cardio S1, S2 are muffled. Respiratory shows diminished breath sounds at the bases with a few scattered rhonchi noted. Abdomen is soft and nontender. Nervous system shows no focal deficits. Please refer to medication reconciliation sheet for a list of medications. Patient Condition at Discharge: Stable Plan - Discharge Summary New Discharge Prescriptions: New Cefuroxime Axetil [Ceftin] 500 mg PO BID 3 Days #6 tab Ipratropium-Albuterol Nebulize [Duoneb 0.5 mg-3 mg/3 ml Soln] 3 ml INHALATION RT-QID ml Ipratropium-Albuterol Nebulize [Duoneb 0.5 mg-3 mg/3 ml Soln] 3 ml INHALATION RT-QID PRN ml PRN Reason: Shortness Of Breath Or Wheezing Multivitamins, Thera [Multivitamin (formulary)] 1 each PO DAILY@1200 30 Days #30 tab Nystatin 100,000 Unit/ml Susp [Mycostatin Oral Susp] 500,000 unit PO QID 7 Days #120 ml Formoterol Fumarate [Perforomist] 20 mcg INHALATION RT-BID nebu predniSONE 10 mg PO DIRECTED #30 tab Azithromycin [Zithromax] 500 mg PO HS 4 Days #4 tab Continue amLODIPine [Norvasc] 10 mg PO DAILY Aspirin EC [Ecotrin Low Dose] 81 mg PO HS Montelukast [Singulair] 10 mg PO HS Atorvastatin [Lipitor] 10 mg PO HS FLUoxetine HCL [PROzac] 20 mg PO DAILY Lisinopril [Zestril] 20 mg PO DAILY Ipratropium-Albuterol Nebulize [Duoneb 0.5 mg-3 mg/3 ml Soln] 3 ml INHALATION RT-QID PRN PRN Reason: Shortness Of Breath Umeclidinium [place] [Incruse Ellipta] 1 puff INHALATION RT-DAILY Ferrous Sulfate [Iron (65 MG Elemental)] 325 mg PO DAILY lamoTRIgine [LaMICtal] 25 mg PO DAILY Furosemide [Lasix] 20 mg PO DAILY Fluticasone/Vilanterol [Breo Ellipta 200-25 Mcg INH] 1 puff INHALATION RT- DAILY Discharge Medication List Aspirin EC [Ecotrin Low Dose] 81 mg PO HS 09/03/14 [History] Atorvastatin [Lipitor] 10 mg PO HS 09/03/14 [History] Montelukast [Singulair] 10 mg PO HS 09/03/14 [History] amLODIPine [Norvasc] 10 mg PO DAILY 09/03/14 [History] FLUoxetine HCL [PROzac] 20 mg PO DAILY 07/07/15 [History] Lisinopril [Zestril] 20 mg PO DAILY 07/07/15 [History] Ferrous Sulfate [Iron (65 MG Elemental)] 325 mg PO DAILY 09/11/19 [History] Fluticasone/Vilanterol [Breo Ellipta 200-25 Mcg INH] 1 puff INHALATION RT-DAILY 09/11/19 [History] Furosemide [Lasix] 20 mg PO DAILY 09/11/19 [History] Ipratropium-Albuterol Nebulize [Duoneb 0.5 mg-3 mg/3 ml Soln] 3 ml INHALATION RT-QID PRN 09/11/19 [History] Umeclidinium [place] [Incruse Ellipta] 1 puff INHALATION RT-DAILY 09/11/19 [History] lamoTRIgine [LaMICtal] 25 mg PO DAILY 09/11/19 [History] Azithromycin [Zithromax] 500 mg PO HS 4 Days #4 tab 09/14/19 [Rx] Cefuroxime Axetil [Ceftin] 500 mg PO BID 3 Days #6 tab 09/14/19 [Rx] Formoterol Fumarate [Perforomist] 20 mcg INHALATION RT-BID nebu 09/14/19 [Rx] Ipratropium-Albuterol Nebulize [Duoneb 0.5 mg-3 mg/3 ml Soln] 3 ml INHALATION RT-QID ml 09/14/19 [Rx] Ipratropium-Albuterol Nebulize [Duoneb 0.5 mg-3 mg/3 ml Soln] 3 ml INHALATION RT-QID PRN ml 09/14/19 [Rx] Multivitamins, Thera [Multivitamin (formulary)] 1 each PO DAILY@1200 30 Days #30 tab 09/14/19 [Rx] Nystatin 100,000 Unit/ml Susp [Mycostatin Oral Susp] 500,000 unit PO QID 7 Days #120 ml 09/14/19 [Rx] predniSONE 10 mg PO DIRECTED #30 tab 09/14/19 [Rx] Follow up Appointment(s)/Referral(s): Nicole Campbell DO [Primary Care Provider] - 09/16/19 1:45 pm (You will be seen at the [place] office.) Ambulatory/Diagnostic Orders: Basic Metabolic Panel [LAB.AMB] Location: None Selected Patient Instructions/Handouts: Cefuroxime (By mouth), Prednisone (By mouth), Nystatin (By mouth), Azithromycin (By mouth) Activity/Diet/Wound Care/Special Instructions: Activity Limited until follow-up Follow-up with Primary care provider upon discharge Continue with antibiotics until finished Continue current diet Repeat labs in 2-3 days Discharge Disposition: HOME SELF-CARE
--- NOTE | 2019-09-16 06:51 | CDI ---
Documentation Clarification Form 4th Request Date: 09/13/2019 10:42:47 AM From: Edie Watts RN, CCDS Admit Date: 09/11/2019 01:40:00 PM Patient Name: Tawanna Vogt Visit Number: [id number] ATTENTION: The Clinical Documentation Specialists (CDI) and [facility] Coding Staff appreciate your assistance in clarifying documentation. Please respond to the clarification below the line at the bottom and electronically sign. The CDI & [facility] Coding staff will review the response and follow-up if needed. Please note: Queries are made part of the Legal Health Record. If you have any questions, please contact the author of this message via ITS. Dr. Miguel Hammonds Asthma is documented in the H&P, Pulmonary consult, and Progress notes and requires further specificity. History/risk factors: Asthma, COPD, Pneumonia, anxiety Clinical Indicators: 09/10 H&P: "Chronic obstructive pulmonary disease exacerbation with acute purulent tracheobronchitis with failure of outpatient treatment, asthma, chronic obstructive pulmonary disease acute exacerbation." 09/11 Pulmonary Consult: "Asthma." CXR: "Underlying COPD. Some strandy bibasilar atelectasis." 09/11/19 1111 Vital Signs: Temp 98.1, hr 91, RR 18, B/P 130/67, spo2 97% RA Treatment: Medication: Duoneb INH QID and PRN SOB, Pulmoicort INH BID, Performamist 20mcg INH BID, Xanax .25 PO PRN, Solumedrol 60 mg IVP Q 6 hrs anxiety, Singulair 10 mg PO HS Consults: Pulmonary In your professional opinion, can you please further specify the following, if known? With Acute Exacerbation Status asthmaticus Acute lower respiratory infection COPD (specify with or without exacerbation) Chronic obstructive bronchitis Other, please specify ___ Unable to determine Severity Mild intermittent Mild persistent Moderate persistent Severe persistent Other, please specify ____ Unable to determine Form or Type Cough variant Childhood Exercise induced bronchospasm Extrinsic allergic Idiosyncratic Intrinsic nonallergic Late-onset Mixed Other, please specify____ Unable to determine (Last Revision: October 2017) MTDD
--- NOTE | 2019-09-23 07:31 | CDI ---
Documentation Clarification Form 6th Request Date: 09/13/2019 10:42:47 AM From: Edie Watts RN, CCDS Admit Date: 09/11/2019 01:40:00 PM Patient Name: Tawanna Vogt Visit Number: [id number] ATTENTION: The Clinical Documentation Specialists (CDI) and [facility] Coding Staff appreciate your assistance in clarifying documentation. Please respond to the clarification below the line at the bottom and electronically sign. The CDI & [facility] Coding staff will review the response and follow-up if needed. Please note: Queries are made part of the Legal Health Record. If you have any questions, please contact the author of this message via ITS. Dr. Miguel Hammonds Asthma is documented in the H&P, Pulmonary consult, and Progress notes and requires further specificity. History/risk factors: Asthma, COPD, Pneumonia, anxiety Clinical Indicators: 09/10 H&P: "Chronic obstructive pulmonary disease exacerbation with acute purulent tracheobronchitis with failure of outpatient treatment, asthma, chronic obstructive pulmonary disease acute exacerbation." 09/11 Pulmonary Consult: "Asthma." CXR: "Underlying COPD. Some strandy bibasilar atelectasis." 09/11/19 1111 Vital Signs: Temp 98.1, hr 91, RR 18, B/P 130/67, spo2 97% RA Treatment: Medication: Duoneb INH QID and PRN SOB, Pulmoicort INH BID, Performamist 20mcg INH BID, Xanax .25 PO PRN, Solumedrol 60 mg IVP Q 6 hrs anxiety, Singulair 10 mg PO HS Consults: Pulmonary In your professional opinion, can you please further specify the following, if known? With Acute Exacerbation Status asthmaticus Acute lower respiratory infection COPD (specify with or without exacerbation) Chronic obstructive bronchitis Other, please specify ___ Unable to determine Severity Mild intermittent Mild persistent Moderate persistent Severe persistent Other, please specify ____ Unable to determine Form or Type Cough variant Childhood Exercise induced bronchospasm Extrinsic allergic Idiosyncratic Intrinsic nonallergic Late-onset Mixed Other, please specify____ Unable to determine (Last Revision: October 2017) MTDD
== END 2019-09-14 14:03 | disposition home or self-care (01) | DRG 190 ==
LOC: EC 11:10 → 5NMEDONC 13:40
PROVIDERS: ADMIT Hospitalist; ATTEND Hospitalist
DX: J44.1 Chronic obstructive pulmonary disease with (acute) exacerbation (principal); N17.0 Acute kidney failure with tubular necrosis; E87.1 Hypo-osmolality and hyponatremia; E78.5 Hyperlipidemia, unspecified; I10 Essential (primary) hypertension; F41.9 Anxiety disorder, unspecified; E66.9 Obesity, unspecified; I27.81 Cor pulmonale (chronic); F32.9 Major depressive disorder, single episode, unspecified; Z79.899 Other long term (current) drug therapy; Z88.5 Allergy status to narcotic agent; Z87.01 Personal history of pneumonia (recurrent); Z90.89 Acquired absence of other organs; Z98.890 Other specified postprocedural states; Z87.891 Personal history of nicotine dependence; Z80.3 Family history of malignant neoplasm of breast; Z99.81 Dependence on supplemental oxygen; Z68.36 Body mass index [BMI] 36.0-36.9, adult
CPT/HCPCS: 36415; 71046; 80048; 80053; 83605; 83735; 83880; 84484; 85025; 85379; 85610; 85730; 87502; 94640; 94760; 96374; 96375; 99285

== ENCOUNTER → 2021-03-04 | Outpatient (CLI) | payer MEDICARE, OTHER ==
--- NOTE | 2021-03-04 16:15 | CTL ---
EXAMINATION TYPE: CT Low Dose Lung DATE OF EXAM ORDERED: 03/04/2021 HISTORY: Long-term tobacco use. Lung cancer screening CT DLP: 88.[address] CTDI: 2.6 mGy Automated exposure control for dose reduction was used. SCREENING VISIT: Baseline COMPARISON: Chest CT March 11, 2016 and older 2015 studies. Chest x-ray September 11, 2019. TECHNIQUE: Low dose computed tomography scan was performed through the chest at 1 mm thick sections a nd reconstructed images in the coronal plane at [address] DIAGNOSTIC QUALITY: Satisfactory FINDINGS: LUNG NODULES: Present, detailed below: New small left pleural effusion. Associated medial left basilar mass and/or masslike consolidation co uld reflect compressive atelectasis measuring 3.8 x 1.8 cm axial image 172 with some inferior extensi on. Underlying hypermetabolic mass or nodule cannot be excluded. New Suspicious 1.5 x 1.3 cm spiculated nodule or nodular consolidation right middle lobe axial image 207. Follow-up advised. LUNGS: COPD: Severity: Mild to moderate Fibrosis: Severity: Stable mild to moderate right upper lung Lymph nodes: No new greater than 1 cm Other findings: None RIGHT PLEURAL SPACE: Effusion: None Calcification: None Thickening: None Pneumothorax: None LEFT PLEURAL SPACE: Effusion: Small Calcification: None Thickening: None Pneumothorax: None HEART: Heart Size: Normal Coronary calcification: Moderate three-vessel Pericardial effusion: None OTHER FINDINGS: Upper abdomen: None Bony thorax: Underlying scoliosis upper thoracic spine redemonstrated Supraclavicular region: None Other: None IMPRESSION: New asymmetric small left pleural effusion. CT LUNG RAD AND CT CHEST RECOMMENDATION: Lung-Rad 4B or 4X Very Suspicious: Follow-up Chest CT with o r without contrast or PET/CT and/or tissue sampling. PET/CT may be used when there is a > 8 mm solid component. S Modifier (other clinically significant findings): None I would advise PET CT follow-up to further evaluate.
== END | disposition home or self-care (01) ==
LOC: RADCTMAIN 15:30
PROVIDERS: ATTEND Family Medicine
DX: Z12.2 Encounter for screening for malignant neoplasm of respiratory organs (principal); J90 Pleural effusion, not elsewhere classified; Z87.891 Personal history of nicotine dependence
CPT/HCPCS: 71271

== ENCOUNTER → 2021-05-03 | Outpatient (CLI) | payer MEDICARE, OTHER ==
--- NOTE | 2021-05-06 08:36 | PE ---
EXAMINATION TYPE: PET CT fusion skull to thigh DATE OF EXAM: 05/03/2021 COMPARISON: PET CT October 28, 2014. Low-dose lung screening CT March 04, 2021 HISTORY: Solitary pulmonary nodule, abnormal CT. TECHNIQUE: Following the intravenous administration of 8.01 mCi of F-18 FDG, whole body images are p erformed from the skull base to the midthigh. Images are reviewed on the computer in the coronal, ax ial, and sagittal planes. Reconstructed rotating images are created on independent workstation and r eviewed on the computer. A localization and attenuation correction CT is performed in conjunction w ith the PET scan. Blood glucose level equals 90. SCAN: Initial Scan FINDINGS: SKULL BASE AND NECK: Increased hypermetabolic uptake in the level of vocal cords without surrounding soft tissue lesion axial image 46 presumed physiologic. No additional areas of abnormal hypermetabol ic uptake. CHEST,MEDIASTINUM, AND HILAR REGION: Persistent small to tiny left pleural effusion. Persistent mild to moderate left basilar linear scarring and/or atelectasis. Persistent asymmetric medial 3.3 x 1.2 c m mass and/or masslike consolidation axial image 101 is ametabolic favoring compressive atelectasis. No areas of abnormal hypermetabolic uptake noted. ABDOMEN AND PELVIS: Stable 1.5 cm left adrenal mass from 2015 CT remains ametabolic. Normal excretion . Slight asymmetric soft tissue thickening left wall sigmoid rectal colon axial image 205 with possib le hypermetabolic uptake versus misregistration artifact from adjacent bladder. Advise correlation wi th colonoscopy if has not been performed in last 3 years. OSSEOUS STRUCTURES: No areas of abnormal hypermetabolic uptake. OTHER CT: Mild/moderate calcified plaque left carotid bulb. Enlarged right and left pulmonary arterie s consistent with underlying pulmonary artery hypertension. Moderate three-vessel coronary artery hernando cification. Mild cardiomegaly. Calcified prominent lobulated uterus likely fibroid disease. Correlate clinically. Calcifications new from 2015 study. IMPRESSION: 1. No suspicious hypermetabolic uptake in the medial posterior left basilar lesion favoring compressi ve atelectasis. Consider follow-up CT in 6-12 months time to reassess. 2. Moderate eccentric wall thickening left aspect sigmoid rectal colon, possible abnormal hypermetabo lic uptake versus artifact. Cannot entirely exclude neoplasm at this level. Advise colonoscopy follow -up if has not been performed last 3 years.
== END | disposition home or self-care (01) ==
LOC: RADPETMAIN 14:19
PROVIDERS: ATTEND Internal Medicine Pulmonary Disease
DX: R91.1 Solitary pulmonary nodule (principal)
CPT/HCPCS: 78815; A9552

== ENCOUNTER → 2022-04-22 | Outpatient (CLI) | payer MEDICARE, OTHER ==
--- NOTE | 2022-04-22 14:01 | CT ---
EXAMINATION TYPE: CT chest wo con DATE OF EXAM: 04/22/2022 COMPARISON: CT chest 12/24/2015, CT chest 03/04/2021, PET/CT 05/03/2021 HISTORY: Lung Nodule CT DLP: 686 mGycm. Automated Exposure Control for Dose Reduction was Utilized. TECHNIQUE: CT scan of the thorax is performed without IV contrast. FINDINGS: Lack of intravenous contrast could compromise sensitivity. LUNGS: The lungs show an interval change. At the right lower lobe there is been interval development of a stellate density, axial image 37 with pleural extension, nodule measures approximately 1 cm in s ize. Additionally there is a wedge-shaped area of increased attenuation in the posterior right lung b ase which was not seen on prior exam, axial image 41, indeterminate. An oval area at the posterior co stophrenic sulcus is present measuring 2 cm which may represent postinflammatory change or atelectasi s but is indeterminate. There is a probable chronic left pleural effusion versus chronic pleural reac tion at the posterior medial left costophrenic angle, some basilar scarring is present, reduced from prior exam of 03/04/2021. Some interstitial changes are again noted in the right upper lobe. There is underlying emphysema. Question of vague subpleural area of nodularity in the right upper lobe, axial image 24 in the subpleural location. There is no pneumothorax seen. The tracheobronchial tree is pat ent. MEDIASTINUM: Lack of IV contrast is noted to limit evaluation for mediastinal and especially hilar ad enopathy. There are no definitive greater than 1 cm hilar or mediastinal lymph nodes. No cardiomega ly or pericardial effusion is seen. Prominence of pulmonary artery could be indicative of pulmonary a rtery hypertension. There are coronary artery calcifications. OTHER: Aorta shows dense atheromatous change and is somewhat ectatic within the abdomen. There is a l eft adrenal nodule present which is chronic IMPRESSION: Question interval suspicious findings, difficult to exclude early bronchogenic carcinoma or metastasis, follow-up is recommended. Noncontrast exam and additional findings above.
== END | disposition home or self-care (01) ==
LOC: RADCTMAIN 12:51
PROVIDERS: ATTEND Internal Medicine Pulmonary Disease
DX: R91.1 Solitary pulmonary nodule (principal)
CPT/HCPCS: 71250

== ENCOUNTER → 2022-05-16 | Outpatient (CLI) | payer MEDICARE, OTHER ==
--- NOTE | 2022-05-19 08:45 | PE ---
EXAMINATION TYPE: PET CT fusion skull to thigh DATE OF EXAM: 05/16/2022 CLINICAL INDICATION:Female, 72 years old with history of SOLITARY PULMONARY NODULE; TECHNIQUE: Following the intravenous administration of 11.42 mCi of F-18 FDG, whole body images are performed from the skull base to the midthigh. Images are reviewed on the computer in the coronal, axial, and sagittal planes. Reconstructed rotating images are created on independent workstation and reviewed on the computer. A non-contrast CT is performed in conjunction with the PET scan. Glucose level 93 mg/dL COMPARISON: CT most recent 04/22/2022, PET/CT 05/03/2021, FINDINGS: Mediastinal SUV mean is 2.3. Hepatic parenchyma SUV mean is 2.5. SKULL BASE AND NECK: No suspicious FDG activity. CHEST, MEDIASTINUM, AND HILAR REGION: New right upper lobe pulmonary consolidation changes that parti ally extends towards the peripheral pleura with mild increased FDG activity max SUV 2.4, a more conso lidation area measuring 1.8 x 1.4 cm has a different morphology on today's exam than prior on 021 where it appeared more flattened linear. Streaky atelectasis/scarring seen within the left lung b ase. Trace left pleural effusion. ABDOMEN AND PELVIS: No suspicious FDG activity. Stable 1.5 cm left adrenal nodule without increased F DG activity. The rectal wall asymmetric uptake is felt to be related to urinary bladder on prior. No suspicious rectal wall FDG uptake. OSSEOUS STRUCTURES: No suspicious FDG activity. OTHER CT: Atherosclerosis of the arterial vasculature including the carotid bifurcations and coronary arteries. Emphysema changes are seen predominantly in the lung apices. Fat-containing umbilical olivier ia. Similar appearing partially calcified lesion within the pelvis measuring 7.4 x 4.7 x 7.0 cm felt to be arising from the uterus or left ovary. This does not demonstrate increased FDG activity. IMPRESSION: * New right upper lobe consolidation which extend towards the pleura with mildly increased FDG activ ity findings could represent focal inflammation/infection given change in morphology from prior with malignancy not entirely excluded. Short-term follow-up CT chest is recommended in one month. * The rectal wall asymmetric uptake is felt to be related to urinary bladder on prior. No suspicious rectal wall FDG uptake.
== END | disposition home or self-care (01) ==
LOC: RADPETMAIN 16:21
PROVIDERS: ATTEND Internal Medicine Interventional Cardiology
DX: R91.1 Solitary pulmonary nodule (principal)
CPT/HCPCS: 78815; A9552

== ENCOUNTER → 2023-12-07 | Outpatient (CLI) | payer MEDICARE, OTHER ==
--- NOTE | 2023-12-07 17:10 | CT ---
EXAMINATION TYPE: CT chest wo con CT DLP: 418.3 mGycm, Automated exposure control for dose reduction was used. DATE OF EXAM: 12/07/2023 4:57 PM COMPARISON: 08/25/2022 05/16/2022. 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 Sagittal and coronal reformats were created for review. Contrast used: mL of (None if empty) Oral contrast used: (None if empty) FINDINGS: LUNGS/ PLEURA: There is severe centrilobular emphysema changes with apical scarring. Trachea atelecta sis in the lung bases are present. No pneumothorax identified. No large pleural effusion identified. Suspected round atelectasis with anteriorly and posteriorly series 7 image 85. She AIRWAY: Patent and unremarkable. HEART: Size within normal limits. MEDIASTINUM: No gross evidence of adenopathy. VASCULATURE: Just above the diaphragm there is saccular aneurysm of the aorta measuring 4.1 cm. MUSCULOSKELETAL: No acute osseous abnormalities SOFT TISSUES/LYMPH NODES: Unremarkable. LOWER NECK: No significant findings. UPPER ABDOMEN: Stable left adrenal indeterminate nodule measuring 29 Hounsfield units and up to 13 mm . IMPRESSION: 1. Suspected right upper lung scarring/atelectasis. No suspicious nodule definitively visualized. Co ntinued low dose lung cancer screening surveillance given extensive moderate to severe emphysema krause ges. 2. Moderate to severe emphysema changes similar to prior. 3. 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 4. Stable left adrenal indeterminate nodule.
== END | disposition home or self-care (01) ==
LOC: RADCTMAIN 16:26
PROVIDERS: ATTEND Internal Medicine Pulmonary Disease
DX: J43.2 Centrilobular emphysema (principal); J44.9 Chronic obstructive pulmonary disease, unspecified; I71.23 Aneurysm of the descending thoracic aorta, without rupture; R91.1 Solitary pulmonary nodule
CPT/HCPCS: 71250